=== PATIENT | female | born 1995 | race Caucasian/White ===

== ENCOUNTER 2017-07-28 16:47 | Emergency (ER) | payer OTHER ==
[~2017-07-28] VITALS: Ht 167.6 cm; Wt 82.0 kg
[2017-07-28 17:30] VITALS: BP 126/67
[2017-07-28] MEDS ORDERED: IBUPROFEN 600MG TABLET PO ONE (17:30)
== END 2017-07-28 20:00 | disposition home or self-care (01) ==
LOC: ER 16:58
DX: S39.012A Strain of muscle, fascia and tendon of lower back, initial encounter (principal); S16.1XXA Strain of muscle, fascia and tendon at neck level, initial encounter; R51 Headache; V49.9XXA Car occupant (driver) (passenger) injured in unspecified traffic accident, initial encounter; Y93.89 Activity, other specified; Y99.8 Other external cause status; Y92.410 Unspecified street and highway as the place of occurrence of the external cause
CPT/HCPCS: 70150; 99284